=== PATIENT | female | born 1995 | race Caucasian/White ===

== ENCOUNTER 2020-08-02 10:14 | Emergency (ER) | payer SELFPAY ==
--- NOTE | ~2020-08-02 | XR_ITS ---
EXAMINATION: XR ankle RT 2V DATE: 08/02/2020 11:00 INDICATION: Lateral right ankle pain and swelling post twisting injury TECHNIQUE: Anteroposterior and lateral views of the right ankle were obtained. COMPARISON: 01/04/2014 FINDINGS: Unchanged chronic small nonunited and minimally distracted avulsion fracture fragment at the anterior tip of the lateral malleolus likely involving the footplate of the anterior talofibular ligament. Al ignment is otherwise normal with congruent ankle mortise. No acute fracture. Joint spaces are normal. Soft tissue swelling anterior and lateral to the ankle. No evident ankle joint effusion. IMPRESSION: 1. Unchanged small nonunited avulsion fracture right mid at the distal tip of the lateral malleolus. No acute osseous abnormality. Reviewed, dictated and finalized at location A. IMPRESSION: 1. Unchanged small nonunited avulsion fracture right mid at the distal tip of t he lateral malleolus. No acute osseous abnormality.
[2020-08-02 10:19] VITALS: BP 135/62; PULSE 71; RESP 16; TEMP 36; O2SAT 100
[2020-08-02] MEDS: NAPROXEN 500 MG TABLET PO (11:57)
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
[2020-08-02 12:12] VITALS: BP 132/68; PULSE 78; RESP 18; O2SAT 99
--- NOTE | 2020-08-02 12:12 | PC.NURSE ---
patient declined crutches. states she can borrow them from a friend. crutch instructions provided
== END 2020-08-02 12:14 | disposition home or self-care (01) ==
PROVIDERS: Emergency Provider Emergency Medicine; PCP Internal Medicine
DX: S93.401A Sprain of unspecified ligament of right ankle, initial encounter (principal); S96.911A Strain of unspecified muscle and tendon at ankle and foot level, right foot, initial encounter; X50.9XXA Other and unspecified overexertion or strenuous movements or postures, initial encounter
CPT/HCPCS: 73600; 99283; A9270

== ENCOUNTER 2021-04-29 15:39 | Emergency (ER) | payer SELFPAY ==
[2021-04-29 16:06] VITALS: BP 136/77; PULSE 84; RESP 18; TEMP 36.9; O2SAT 98
--- NOTE | 2021-04-29 16:18 | ED.URI ---
HPI - URI/Sore Throat General Chief Complaint: Upper Respiratory Infection Stated Complaint: chest pain Source: patient and family Mode of arrival: ambulatory Limitations: no limitations History of Present Illness MD elicited complaint: cough and nasal congestion Onset (ago): week(s) (1) Consistency: constant Severity: moderate Description of mucous: clear Able to tolerate fluids by mouth: Yes Exacerbating factors: nothing Relieving factors: nothing Associated symptoms: myalgias (chest wall) and headache Treatments prior to arrival: none Related Data Home Medications Medication Instructions Recorded Confirmed No Home Medications 08/02/20 08/02/20 Allergies Allergy/AdvReac Type Severity Reaction Status Date / Time No Known Allergies Allergy Unverified 08/02/20 10:45 Review of Systems Review of Systems: All systems reviewed & are unremarkable except as noted in HPI and below Constitutional: Constitutional: Denies chills and Denies fever(s) Respiratory: Respiratory: Reports as per HPI, Reports cough and Denies dyspnea Gastrointestinal: Gastrointestinal: Denies nausea and Denies vomiting PMFSH Past Medical History Medical History (Updated 04/29/21 @ 17:18 by Moustapha Terrell MD) Anxiety and depression Hyperlipidemia Social History Social History Gender identity (if verbalized by the patient): Female Exam Const: General: healthy appearing, no acute distress and alert Nutritional Appearance: well nourished Orientation/consciousness: patient oriented x3 Other: female nurse in room during examination. HENMT: Head: normal to inspection Ears: external ears normal Mouth: Yes moist mucous membranes Eyes: Conjunctivae: conjunctivae normal Pupils: Equal, round and reactive pupils present EOM: EOMs intact bilaterally Neck: Neck: normal visual inspection Chest: Chest palpation & inspection: tenderness (reproduces chest wall discomfort) pectoral muscle on the right diffusely Resp: Effort & Inspection: normal respiratory effort Auscultation: clear to auscultation bilaterally Cardio: Rate: regular rate Rhythm: regular rhythm GI: GI Palp: Yes Soft to palpation and No Tenderness to palpation present (GI) Auscultation: normal bowel sounds Back/Spine/Pelvis: Cervical Spine: cervical ROM normal Thoracic/Lumbar Spine: thoraco-lumbar ROM normal Skin: General skin exam: normal color Rashes: no rashes Neuro: General: patient oriented x3, moves all extremities, no meningeal signs, no focal motor deficits and CN's II-XI intact bilaterally Speech: normal speech Gait exam (Neuro): Normal gait present Extrem: General: normal to inspection and no clubbing, cyanosis or edema Psych: Appearance: grossly normal and well kempt Mental Status: mental status grossly normal Affect: normal affect Attitude: cooperative Thought content: Yes Normal thought content present Course Vital Signs Vital signs: Vital Signs Temperature 36.9 C 04/29/21 16:06 Pulse Rate 84 04/29/21 16:06 Respiratory Rate 18 04/29/21 16:06 Blood Pressure 136/77 04/29/21 16:06 Pulse Oximetry 98 04/29/21 16:06 Temperature 36.9 C 04/29/21 16:06 Pulse Rate 84 04/29/21 16:06 Respiratory Rate 18 04/29/21 16:06 Blood Pressure 136/77 04/29/21 16:06 Pulse Oximetry 98 04/29/21 16:06 MDM - URI/Sore Throat Lab Data Result diagrams: 04/29/21 16:34 04/29/21 16:34 Labs: Lab Results 04/29/21 04/29/21 04/29/21 Range/Units 16:34 16:34 16:34 WBC 6.0 (4.8-10.8) K/mm3 RBC 4.69 (4.20-5.40) M/mm3 Hgb 12.7 (12.0-15.0) g/dL Hct 39.5 (35.0-49.0) % MCV 84.2 (78.0-102.0) fL MCH 27.1 (27.0-31.0) pg MCHC 32.2 (32.0-36.0) g/dL RDW 13.4 (11.6-14.4) % Plt Count 317 (150-420) K/mm3 MPV 9.7 (9.2-11.8) fl Immature Gran % (Auto) 0.3 H (0.0-0.0) % Neut % (Auto) 55.3 (50.0-70.0) % Lymph % (Auto) 37.8 (18.0-42.0) % Desha % (
[2021-04-29 16:40] LABS: Basophils Absolute Auto 0.02 K/mm3 (0.00-0.10); Basophils Percent Auto 0.3 % (0.0-1.0); Eosinophils Absolute Auto 0.11 K/mm3 (0.02-0.50); Eosinophils Percent Auto 1.8 % (1.0-6.0); Hematocrit 39.5 % (35.0-49.0); Hemoglobin 12.7 g/dL (12.0-15.0); Immature Granulocyte Absolute 0.02 K/mm3 (0.00-0.00); Immature Granulocyte Percent A 0.3 % (0.0-0.0); Lymphocytes Absolute Auto 2.25 K/mm3 (1.10-4.50); Lymphocytes Percent Auto 37.8 % (18.0-42.0); Mean Corpuscular HGB Conc 32.2 g/dL (32.0-36.0); Mean Corpuscular Hemoglobin 27.1 pg (27.0-31.0); Mean Corpuscular Volume 84.2 fL (78.0-102.0); Mean Platelet Volume 9.7 fl (9.2-11.8); Monocytes Absolute Auto 0.27 K/mm3 (0.10-0.90); Monocytes Percent Auto 4.5 % (2.0-11.0); Neutrophils Absolute Auto 3.3 K/mm3 (1.7-7.2); Neutrophils Percent Auto 55.3 % (50.0-70.0); Platelet Count Result 317 K/mm3 (150-420); Red Blood Count 4.69 M/mm3 (4.20-5.40); Red Cell Distribution Width 13.4 % (11.6-14.4)
[2021-04-29 16:58] LABS: Alanine Aminotransferase 28 U/L (14-59); Albumin Level 3.6 g/dL (3.4-5.0); Alkaline Phosphatase 50 U/L (46-116); Anion Gap 8 mmol/L (8-16); Aspartate Amino Transferase 11 U/L (15-37); Bilirubin,Total 0.3 mg/dL (0.00-1.00); Blood Urea Nitrogen 10 mg/dL (7-18); Calcium 8.6 mg/dL (8.5-10.1); Carbon Dioxide 28 mmol/L (21-32); Chloride 104 mmol/L (98-108); Estimated CRCL calculation 97 ml/min; Estimated Glomerular Filt Rate > 60; Glucose 89 mg/dL (70-99); Magnesium 1.8 mg/dL (1.8-2.4); Osmolality Calculated 288 mOsm/kg (285-295); Potassium 4.2 mmol/L (3.5-5.1); Sodium 140 mmol/L (136-145); Total Protein 6.9 g/dL (6.4-8.2)
[2021-04-29 17:03] LABS: SARS-CoV-2 RNA PCR Negative (Negative)
[2021-04-29 17:05] LABS: CRP < 0.2 mg/dL (0.0-0.9)
== END 2021-04-29 17:23 | disposition home or self-care (01) ==
PROVIDERS: Emergency Provider Emergency Medicine; PCP Internal Medicine
DX: J00 Acute nasopharyngitis [common cold] (principal); Z20.822 Contact with and (suspected) exposure to COVID-19
CPT/HCPCS: 36415; 80053; 83735; 85025; 86140; 99282; 99283; C9803; U0003; U0005

== ENCOUNTER 2021-12-27 14:29 | Emergency (ER) | payer OTHER, SELFPAY ==
[2021-12-27 14:53] VITALS: BP 118/60; PULSE 68; RESP 20; TEMP 36.6; O2SAT 98
[2021-12-27 15:08] LABS: Occult Blood Positive (Negative)
[2021-12-27 15:18] LABS: Basophils Absolute Auto 0.04 K/mm3 (0.00-0.10); Basophils Percent Auto 0.5 % (0.0-1.0); Eosinophils Absolute Auto 0.16 K/mm3 (0.02-0.50); Eosinophils Percent Auto 2.1 % (1.0-6.0); Hematocrit 37.4 % (35.0-49.0); Hemoglobin 11.9 g/dL (12.0-15.0); Immature Granulocyte Absolute 0.03 K/mm3 (0.00-0.00); Immature Granulocyte Percent A 0.4 % (0.0-0.0); Lymphocytes Absolute Auto 2.47 K/mm3 (1.10-4.50); Mean Corpuscular HGB Conc 31.8 g/dL (32.0-36.0); Mean Corpuscular Volume 84.8 fL (78.0-102.0); Mean Platelet Volume 9.8 fl (9.2-11.8); Monocytes Absolute Auto 0.42 K/mm3 (0.10-0.90); Monocytes Percent Auto 5.4 % (2.0-11.0); Neutrophils Absolute Auto 4.6 K/mm3 (1.7-7.2); Neutrophils Percent Auto 59.6 % (50.0-70.0); Platelet Count Result 304 K/mm3 (150-420); Red Blood Count 4.41 M/mm3 (4.20-5.40); Red Cell Distribution Width 14.6 % (11.6-14.4); White Blood Count 7.7 K/mm3 (4.8-10.8)
[2021-12-27 15:33] LABS: Alanine Aminotransferase 29 U/L (14-59); Albumin Level 3.5 g/dL (3.4-5.0); Alkaline Phosphatase 74 U/L (46-116); Anion Gap 9 mmol/L (8-16); Aspartate Amino Transferase 18 U/L (15-37); Bilirubin,Total 0.4 mg/dL (0.00-1.00); Blood Urea Nitrogen 11 mg/dL (7-18); Calcium 8.7 mg/dL (8.5-10.1); Carbon Dioxide 25 mmol/L (21-32); Chloride 105 mmol/L (98-108); Estimated CRCL calculation 99 ml/min; Estimated Glomerular Filt Rate > 60; Glucose 100 mg/dL (70-99); Osmolality Calculated 287 mOsm/kg (285-295); Potassium 3.9 mmol/L (3.5-5.1); Sodium 139 mmol/L (136-145)
--- NOTE | 2021-12-27 15:39 | ED.GIBLEED ---
HPI - GI Bleed General Chief complaint: GI Bleed Stated complaint: abdominal pain Time Seen by Provider: 12/27/21 14:53 Source: patient and family Mode of arrival: ambulatory History of Present Illness HPI Narrative: This is a 26-year-old female presents with her mother after she had an episode of bloody stool earlier today, no known history of hemorrhoids no history of any past medical problems not taking any medicine, currently there is no abdominal pain no fever chills vital signs are stable currently there is no bleeding from down below. Onset (ago): hour(s) Pain Consistency: now resolved Severity: mild Relieving factors: none Exacerbating factors: none Related Data Allergies Allergy/AdvReac Type Severity Reaction Status Date / Time No Known Allergies Allergy Unverified 08/02/20 10:45 Review of Systems Review of Systems: All systems reviewed & are unremarkable except as noted in HPI and below PMFSH Past Medical History Medical History Anxiety and depression Hyperlipidemia Social History Social History Gender identity (if verbalized by the patient): Female Exam Const: General: healthy appearing, no acute distress and alert Limitations: no limitations HENMT: Head: normal to inspection Face and sinus: normal facial exam Mouth: Yes Normal oral and palatal mucosa present Eyes: Conjunctivae: conjunctivae normal EOM: EOMs intact bilaterally Neck: Neck: normal visual inspection, no lymphadenopathy and no meningeal signs Chest: Chest palpation & inspection: normal inspection of the chest Resp: Effort & Inspection: normal respiratory effort Auscultation: clear to auscultation bilaterally Cardio: Rate: regular rate GI: GI Palp: Yes Soft to palpation Rectal Exam: normal sphincter tone Other: Rectal exam elicits no internal hemorrhoids but there is a external hemorrhoid at about the 5 o'clock position that appears to have burst currently not bleeding and no overt blood per rectum. : General: Yes bladder normal to palpation Skin: General skin exam: normal color Rashes: no rashes Neuro: General: moves all extremities, no meningeal signs and no focal motor deficits Extrem: General: normal to inspection Psych: Mental Status: mental status grossly normal Affect: normal affect Course Course Emergency Course: Labs reviewed with patient and mother currently there is no overt bleeding per rectum advised to use medicine that will be prescribed and follow up with primary if symptoms persist or worsen. Vital Signs Vital signs: Vital Signs Temperature 36.6 C 12/27/21 14:53 Pulse Rate 68 12/27/21 14:53 Respiratory Rate 20 12/27/21 14:53 Blood Pressure 118/60 12/27/21 14:53 Pulse Oximetry 98 12/27/21 14:53 Oxygen Delivery Room Air 12/27/21 14:53 Temperature 36.6 C 12/27/21 14:53 Pulse Rate 68 12/27/21 14:53 Respiratory Rate 20 12/27/21 14:53 Blood Pressure 118/60 12/27/21 14:53 Pulse Oximetry 98 12/27/21 14:53 Oxygen Delivery Room Air 12/27/21 14:53 MDM - GI Bleed Lab Data Result diagrams: 12/27/21 15:15 12/27/21 15:15 Labs: Lab Results 12/27/21 12/27/21 12/27/21 Range/Units 15:00 15:15 15:15 WBC 7.7 (4.8-10.8) K/mm3 RBC 4.41 (4.20-5.40) M/mm3 Hgb 11.9 L (12.0-15.0) g/dL Hct 37.4 (35.0-49.0) % MCV 84.8 (78.0-102.0) fL MCH 27.0 (27.0-31.0) pg MCHC 31.8 L (32.0-36.0) g/dL RDW 14.6 H (11.6-14.4) % Plt Count 304 (150-420) K/mm3 MPV 9.8 (9.2-11.8) fl Immature Gran % (Auto) 0.4 H (0.0-0.0) % Neut % (Auto) 59.6 (50.0-70.0) % Lymph % (Auto) 32.0 (18.0-42.0) % Wilkin % (Auto) 5.4 (2.0-11.0) % Eos % (Auto) 2.1 (1.0-6.0) % Baso % (Auto) 0.5 (0.0-1.0) % Lymph # (Auto) 2.47 (1.10-4.50) K/mm3 Wilkin # (Auto) 0.42 (0.10-0.90)
[2021-12-27 15:58] VITALS: BP 123/76; PULSE 77; RESP 20; TEMP 36.7; O2SAT 98
== END 2021-12-27 16:00 | disposition home or self-care (01) ==
PROVIDERS: Emergency Provider Emergency Medicine; PCP Internal Medicine
DX: K64.9 Unspecified hemorrhoids (principal)
CPT/HCPCS: 36415; 80053; 82272; 85025; 99283

== ENCOUNTER 2023-12-02 08:57 | Outpatient (CLI) | payer OTHER, MEDICAID, SELFPAY ==
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
== END 2023-12-02 08:58 | disposition home or self-care (01) ==
PROVIDERS: PCP Internal Medicine; Visit Provider Nurse Practitioner Family
DX: M79.671 Pain in right foot (principal); R93.7 Abnormal findings on diagnostic imaging of other parts of musculoskeletal system
CPT/HCPCS: 73590; 73630

== ENCOUNTER 2025-02-22 14:58 | Outpatient (CLI) | payer OTHER, MEDICAID, SELFPAY ==
--- OUTSIDE RECORDS SUMMARY | 2025-02-22 15:04 | XMS_ITS | Encounter Summary ---
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
--- OUTSIDE RECORDS SUMMARY | 2025-02-22 15:04 | XMS_ITS | Clinical Summary ---
Author Organization [facility] Address [address] [place] [address] Care Team Providers Care Rod Puller Name Role Phone Julián Marcano MD Primary Care Provider [phone] Allergies No known active allergies Medications sertraline (ZOLOFT) 50 MG tablet Take 0.5 tablets (25 mg total) by mouth daily. Active escitalopram (LEXAPRO) 10 MG tablet Take 1 tablet (10 mg total) by mouth daily. Active melatonin 1 MG tablet Take 1 tablet (1 mg total) by mouth nightly as needed (sleep). Active Social History Tobacco Use Types Packs/Day Years Used Date Smoking Tobacco: Never Smokeless Tobacco: Never Tobacco Cessation:Counseling Given: Not Answered Alcohol Use Standard Drinks/Week Comments Yes 0 (1 standard drink = 0.6 oz pur e alcohol) socially Comments No Sex and Gender Information Value Date Recorded Sex Assigned at Not on file Legal Sex Female 5:[address] Gender Identity Not on file Sexual Orientation Not on file Last Filed Vital Signs Vital Sign Reading Time Taken Comments Blood Pressure 124/81 04/15/2024 3:[address] JUDGE Pulse 68 04/15/2024 3:[address] JUDGE Temperature 36.6 C (97.9 F) 04/15/2024 1:[address] JUDGE Respiratory Rate 14 04/15/2024 3:[address] JUDGE Oxygen Saturation 97% 04/15/2024 3:[address] JUDGE Inhaled Oxygen Concentration - - Weight 69.4 kg (153 lb) 04/15/2024 1:[address] JUDGE Height 165.1 cm (5' 5) 04/15/2024 1:[address] JUDGE Body Mass Index 25.46 04/15/2024 1:[address] JUDGE Plan of Treatment Health Maintenance Due Date Last Done Comments Cervical Cancer Screening Pa p Smear (Age 30 to 64) Every 3 Years 1994 Hepatitis B Vaccines (2 of 3 - 3-dose series) 1994 1994 Annual Physical 1997 Hepatitis C 01/24/2012 DTaP, Tdap and Td Vaccines ( 1 - Tdap) 2013 1994 HPV Vaccines (1 - 3-dose SCD M series) 2021 Cervical Cancer Screening Pa p with HPV Testing (Age 30 to 64) Every 5 Years 01/24/2024 Cervical Cancer Screening with HPV 01/24/2024 COVID-19 Vaccine ( - 2024-2 6 season) 2024 Influenza Adult (#1) 2025 Hepatitis A Vaccines Aged Out No long er eligible based on patient's age to complete this topic Meningococcal B Vaccine Aged Out No l onger eligible based on patient's age to complete this topic Meningococcal Vaccine Aged Out No caroline jeremias eligible based on patient's age to complete this topic Pneumococcal Vaccine: Pediat rics (0 to 5 Years) and At-Risk Patients (6 to 49 Years) Aged Out No longer eligi ble based on patient's age to complete this topic RSV Immunizations Under 20 Months Aged Out No longer eligible based on patient's age to complete this topic Insurance [facility] - COMMERCIAL Care Teams Rod Puller Relationship Specialty Start Date End Date Julián Marcano MD [address] [place] [address] PCP - General INTERNAL MEDICINE 11/03/22
[2025-02-22 15:46] LABS: Influenza A QL RT-PCR Negative (Negative); Influenza B QL RT-PCR Negative (Negative); RSV RNA, RT-PCR Negative (Negative); SARS-CoV-2 RNA PCR Negative (Negative)
== END 2025-02-22 14:59 | disposition home or self-care (01) ==
LOC: CHSLAB 15:01
PROVIDERS: PCP Internal Medicine; Visit Provider Internal Medicine
DX: J06.9 Acute upper respiratory infection, unspecified (principal)
CPT/HCPCS: 87637